=== PATIENT | female | born 1985 | race Caucasian/White ===

== ENCOUNTER 2022-10-18 11:46 | Emergency (ER) | payer OTHER ==
--- NOTE | 2022-10-18 13:27 | ED Physician Documentation ---
PD HPI UPPER EXT INJURY - Stated complaint Stated Complaint: GLF/LT HAND LAC - Chief complaint Chief Complaint: Laceration - History obtained from History obtained from: Patient - History of Present Illness Location: Left, Hand (palm) Type of injury: Fall ([place] and [place] seashell causing a laceration in her palm. Denies foreign body.) Review of Systems Skin: reports: Laceration (s) Musculoskeletal: denies: Neck pain, Back pain Neurologic: denies: Focal weakness, Numbness PD PAST MEDICAL HISTORY - Past Medical History Cardiovascular: None Endocrine/Autoimmune: None - Allergies Allergies/Adverse Reactions: Allergies Allergy/AdvReac Type Severity Reaction Status Date / Time amoxicillin [From Augmentin] Allergy Cramps Verified 10/18/22 11:53 cefdinir Allergy Cramps Verified 10/18/22 11:53 clavulanic acid Allergy Cramps Verified 10/18/22 11:53 [From Augmentin] PD ED PE NORMAL - Vitals Vital signs reviewed: Yes - General General: Alert and oriented X 3, No acute distress, Well developed/nourished - Derm Derm: Normal color, Warm and dry - Extremities Extremities: Other (The left palm shows a 1.5 cm laceration in the proximal mid palm down to the fatty tissue without any foreign bodies. Mild bleeding. Normal sensation and muscle activity distally.) - Neuro Neuro: No motor deficit, No sensory deficit Results - Vitals Vitals: Vital Signs - 24 hr 10/18/22 10/18/22 11:50 14:04 Temperature 37.0 C 36.9 C Heart Rate 113 H 64 Respiratory 16 16 Rate Blood Pressure 148/99 H 146/88 H O2 Saturation 100 98 Oxygen O2 Source Room air Procedures - Laceration (location) left palm Length in cm: 1.5 Wound type: Linear, Into subcut fat, Clean Neurovascular status: Sensory intact, Motor intact Anesthesia: Marcaine 0.5% with epi Wound preparation: Irrigated copiously NS, Wound explored, To the base Skin layer closure: Nylon, Interrupted, Size #-0 - enter number (4), Sutures - enter # (4) Other: Patient tolerated well, No complications, Neurovascular intact, Dressing applied, Tetanus UTD PD Medical Decision Making - ED course Complexity details: considered differential (Laceration of the palm which extends to the fatty tissue and has some mild bleeding still. No foreign bodies . I think this will heal best with suturing given the ongoing mild bleeding.), d/w patient Departure - Departure Disposition: 01 Home, Self Care Clinical Impression: Laceration of left palm Qualifiers: Encounter type: initial encounter Qualified Code(s): S61.412A - Laceration without foreign body of left hand, initial encounter Condition: Stable Record reviewed to determine appropriate education?: Yes Instructions: ED Laceration Hand Comments: It is okay to wash and shower. Clean off the wound twice a day with soap and water, or peroxide and water. Apply some antibiotic ointment to it to keep it moist. Also to watch for signs of infection such as purulence, redness or increasing pain. Return to your primary care or the ER at the specified time for suture removal. Suture removal 7 to 10 days. Activity as tolerated. Tylenol ibuprofen if needed for pains. Discharge Date/Time: 10/18/22 14:09
[2022-10-18 14:05] VITALS: BP 146/88
== END 2022-10-18 14:09 | disposition home or self-care (01) ==
LOC: ED 11:46
DX: S61.412A Laceration without foreign body of left hand, initial encounter (principal); W01.198A Fall on same level from slipping, tripping and stumbling with subsequent striking against other object, initial encounter; Y92.832 Beach as the place of occurrence of the external cause
CPT/HCPCS: 12001; 99282